=== PATIENT | male | born 1955 | race Caucasian/White ===

== ENCOUNTER 2017-08-10 17:09 | Emergency (ER) | payer MEDICARE, OTHER ==
[~2017-08-10] VITALS: Ht 160 cm; Wt 56.2 kg
[~2017-08-10 17:09] MED LIST: ACYC800 PO; CEPH500 PO; DOXY100 PO; Ensure Plus237 ML PO; Epzicom Tablet1 EACH PO; FAMO20 PO; GENT.3OPO TOP; HYDACE5 PO; HYDR1TAB94 PO; IBUP600 PO; NEOPOLBACA TOP; PROM25 PO; REYATAZ PO; RITO100 PO; Silvadene20 GM TOP
[2017-08-10] MEDS ORDERED: Vibramycin100 MG PO (20:47)
== END 2017-08-10 21:19 | disposition home or self-care (01) ==
LOC: ER 17:09
DX: L02.811 Cutaneous abscess of head [any part, except face] (principal); Z88.2 Allergy status to sulfonamides; Z88.1 Allergy status to other antibiotic agents; Z79.899 Other long term (current) drug therapy; B20 Human immunodeficiency virus [HIV] disease; Z87.891 Personal history of nicotine dependence
CPT/HCPCS: 10060; 70450; 99284

== ENCOUNTER 2017-08-11 19:27 | Emergency (ER) | payer MEDICARE, OTHER ==
[~2017-08-11] VITALS: Ht 165.1 cm; Wt 54.9 kg
[~2017-08-11 19:27] MED LIST changes: +Vibramycin100 MG PO
== END 2017-08-11 20:22 | disposition home or self-care (01) ==
LOC: ER 19:27
DX: Z48.817 Encounter for surgical aftercare following surgery on the skin and subcutaneous tissue (principal); Z88.2 Allergy status to sulfonamides; Z88.1 Allergy status to other antibiotic agents; Z79.899 Other long term (current) drug therapy; Z87.891 Personal history of nicotine dependence
CPT/HCPCS: 99281

== ENCOUNTER 2018-04-28 16:48 | Emergency (ER) | payer MEDICARE, OTHER ==
[~2018-04-28] VITALS: Ht 165.1 cm; Wt 54.4 kg
[2018-04-28] MEDS ORDERED: Prednisone20 MG PO (19:43)
[2018-04-28] MEDS ORDERED: Tears Again15 ML BOTHEYES (19:43)
[2018-04-28] MEDS ORDERED: Zovirax400 MG PO (19:43)
== END 2018-04-28 20:19 | disposition home or self-care (01) ==
LOC: ER 16:48
DX: G51.0 Bell's palsy (principal); Z21 Asymptomatic human immunodeficiency virus [HIV] infection status; Z88.2 Allergy status to sulfonamides; Z88.8 Allergy status to other drugs, medicaments and biological substances; Z79.899 Other long term (current) drug therapy
CPT/HCPCS: 36415; 70450; 93005; 93010; 99284-25

== ENCOUNTER 2019-12-05 17:31 | Observation (INO) | payer MEDICARE ==
[~2019-12-05] VITALS: Ht 165.1 cm; Wt 51.8 kg
[~2019-12-05 17:31] MED LIST changes: +Prednisone20 MG PO; +Tears Again15 ML BOTHEYES; +Zovirax400 MG PO
[2019-12-05 18:39] LABS: BASOPHILS ABSOLUTE AUTO 0.07 K/mm3 (0.00-0.23); BASOPHILS PERCENT AUTO 1 % (0-2); EOSINOPHILS ABSOLUTE AUTO 0.32 K/mm3 (0.00-0.68); EOSINOPHILS PERCENT AUTO 5 % (0-6); Hemoglobin 11.7 g/dL (13.5-17.5); IMMATURE GRAN ABSOLUTE AUTO 0.04 K/mm3 (0.00-0.10); IMMATURE GRAN PERCENT AUTO 1 % (0-1); LYMPHOCYTES ABSOLUTE AUTO 1.32 K/mm3 (0.84-5.20); LYMPHOCYTES PERCENT AUTO 19 % (21-46); MONOCYTES ABSOLUTE AUTO 0.69 K/mm3 (0.16-1.47); MONOCYTES PERCENT AUTO 10 % (4-13); Mean Corpuscular HGB 27.6 pg (26.0-34.0); Mean Corpuscular HGB Conc 30.8 g/dL (31.5-36.5); Mean Corpuscular Volume 90 fL (80-100); Mean Platelet Volume 9.7 fL (9.1-12.4); NEUTROPHILS ABSOLUTE AUTO 4.49 K/mm3 (1.96-9.15); NEUTROPHILS PERCENT AUTO 65 % (41-73); Platelet Count 190 K/mm3 (150-400); RDW Coefficient Variation 13.4 % (11.7-14.2); RDW Standard Deviation 44.1 fL (35.1-46.3); Red Blood Cell Count 4.24 M/mm3 (4.30-5.90); White Blood Cell Count 6.93 K/mm3 (4.00-11.30)
[2019-12-05 19:04] LABS: Alanine Aminotransfer (ALT/SGP 36 U/L (12-78); Albumin, Blood 2.6 g/dL (3.4-5.0); Albumin/Globulin Ratio 0.6 (0.8-1.8); Alk Phos 112 U/L (50-136); Anion Gap 4 mmol/L (6-16); Aspartate Aminotrans (AST/SGOT 23 U/L (12-37); Bilirubin, Total 0.2 mg/dL (0.1-1.0); Blood Urea Nitrogen 38 mg/dL (8-24); Bun/Creatinine Ratio 16.8 (12.0-20.0); CO2, Blood 26 mmol/L (21-32); Calcium, Blood 8.6 mg/dL (8.5-10.1); Chloride, Blood 110 mmol/L (98-108); Creatinine, Blood 2.26 mg/dL (0.60-1.20); Ethanol (Alcohol), Blood, Med <3 mg/dL; Globulin, Blood 4.6 g/dL (2.2-4.0); Glomerular Filtration Rate 31 (60-); Glucose, Blood 110 mg/dL (70-99); Potassium, Blood 4.8 mmol/L (3.5-5.5); Salicylate <1.7 mg/dL (2.8-20.0); Sodium, Blood 140 mmol/L (136-145); Total Protein, Blood 7.2 g/dL (6.4-8.2)
[2019-12-05 19:12] LABS: Acetaminophen, Random <2.0 ug/mL (10.0-30.0)
[2019-12-05 19:42] LABS: Source, Urine Clean Catch
[2019-12-05 19:46] LABS: Bilirubin, Urine Neg (Neg); Blood, Urine Neg (Neg); Glucose Qualitative, Urine Neg (Neg); Ketones, Urine Neg (Neg); Leukocyte Esterase, Urine Neg (Neg); Nitrite, Urine Neg (Neg); Protein, Urine 3+ (Neg); Specific Gravity, Urine 1.015 (1.003-1.022); Urobilinogen, Urine NORM (Normal)
[2019-12-05 19:49] LABS: Appearance, Urine Clear (Clear); Color, Urine Yellow (P-Yellow)
[2019-12-05 19:57] LABS: U Amphetamine Screen Not Detected; U Barbituate Screen Not Detected; U Benzodiazapine Screen Not Detected; U Buprenorphine Screen Not Detected; U Cannabinoids Screen DETECTED; U Cocaine Screen Not Detected; U Methadone Screen Not Detected; U Methamphetamine Screen Not Detected; U Opiates Screen Not Detected; U Oxycodone Screen Not Detected; U Phencyclidine Screen Not Detected; U Propoxyphene Screen Not Detected
[2019-12-05 20:02] LABS: Bacteria Few /hpf; Mucus Light (0-Heavy); Red Blood Cells, Urine 0-2 /hpf (0-2); Squamous Epithelial Cells Rare /hpf (Few); White Blood Cells, Urine 0-2 /hpf (0-5)
--- NOTE | 2019-12-05 20:50 | NUR ---
WERNER ARRIVED TO THE FLOOR VIA WC. ADMITTED FOR ACUTE KIDNEY INJURY, DIZZINESS. AOX3, INDEPENDENT IN THE ROOM. LUNG SOUNDS CLEAR T/O. RESP EVEN AND UNLABORED. HR SINUS, NO CP OR SOB NOTED. SKIN PWD, NO RASHES OR SORES. REPORTS NORMAL BM. FREQUENT URINATION, SMALL AMOUNTS NO BURNING OR PAIN. IV NS INFUSING PER ER ORDER. DENIES ANY PAIN OR DISCOMFORT. ADMISSION DONE, AWAITING FOR MD TO COME SEE THE PATIENT AND PLACE ORDERS.
--- NOTE | 2019-12-05 23:35 | NUR ---
DR. WILLOUGHBY WAS HERE TO SEE THE PATIENT. PLACED ORDERS. EKG VERBAL ORDER GIVEN AND COMPLETED.
--- NOTE | 2019-12-06 05:52 | NUR ---
SHIFT SUMMARY: WERNER WAS ADMITTED FOR ACUTE KIDNEY INJURY. AOX3, INDEPENDENT IN THE ROOM. OCCATIONAL DIZZINESS UPON STANDING, USES CALL LIGHT APPROPRIATLY. DENIED ANY PAIN OR DISCOMFORT. OVERALL ASSESSMENT WAS BENIGN OTHER THEN FREQUENT URINATION, AND LOW AMOUNTS AT A TIME. IV FLUIDS INFUSED AT 75ML/HR. VS WNL, AFEBRILE. TELE SINUS. SLEPT WELL THROUGHOUT THE NIGHT, WITH NO NEEDS TO NOTE. CALL LIGHT REMAINED IN REACH.
[2019-12-06 06:58] LABS: BASOPHILS ABSOLUTE AUTO 0.05 K/mm3 (0.00-0.23); BASOPHILS PERCENT AUTO 1 % (0-2); EOSINOPHILS ABSOLUTE AUTO 0.31 K/mm3 (0.00-0.68); EOSINOPHILS PERCENT AUTO 5 % (0-6); Hematocrit 38.1 % (37.0-53.0); Hemoglobin 11.6 g/dL (13.5-17.5); IMMATURE GRAN ABSOLUTE AUTO 0.03 K/mm3 (0.00-0.10); IMMATURE GRAN PERCENT AUTO 1 % (0-1); LYMPHOCYTES ABSOLUTE AUTO 1.38 K/mm3 (0.84-5.20); LYMPHOCYTES PERCENT AUTO 24 % (21-46); MONOCYTES PERCENT AUTO 10 % (4-13); Mean Corpuscular HGB 27.2 pg (26.0-34.0); Mean Corpuscular HGB Conc 30.4 g/dL (31.5-36.5); Mean Corpuscular Volume 89 fL (80-100); Mean Platelet Volume 9.8 fL (9.1-12.4); NEUTROPHILS ABSOLUTE AUTO 3.46 K/mm3 (1.96-9.15); NEUTROPHILS PERCENT AUTO 59 % (41-73); Platelet Count 218 K/mm3 (150-400); RDW Coefficient Variation 13.3 % (11.7-14.2); RDW Standard Deviation 43.4 fL (35.1-46.3); Red Blood Cell Count 4.26 M/mm3 (4.30-5.90); White Blood Cell Count 5.83 K/mm3 (4.00-11.30)
[2019-12-06 07:19] LABS: Albumin, Blood 2.5 g/dL (3.4-5.0); Albumin/Globulin Ratio 0.7 (0.8-1.8); Bilirubin, Total 0.3 mg/dL (0.1-1.0); Bun/Creatinine Ratio 19.3 (12.0-20.0); Calcium, Blood 8.3 mg/dL (8.5-10.1); Creatinine, Blood 1.92 mg/dL (0.60-1.20); Globulin, Blood 3.5 g/dL (2.2-4.0); Potassium, Blood 5.4 mmol/L (3.5-5.5)
--- NOTE | 2019-12-06 16:33 | NUR ---
PT IS A/OX3, PLEASANT AND COOPERATIVE, THE PT IS UP IND IN HIS ROOM, THE PT DENIES ANY DIZZINESS, SOB, N/V OR PAIN, THE PT WAS ENCOURAGED TO DRINK FLUIDS, PT SLEPT FOR MOST OF THE DAY, PT APPEARS TO BE BREATHING EASILY AT THIS TIME, CALL LIGHT IN REACH, NO OTHER CHANGES NOTICED THIS SHIFT
--- NOTE | 2019-12-07 05:03 | NUR ---
SHIFT SUMMARY HAS BEEN RESTING QUIETLY WITH FEW INTERRUPTIONS THIS SHIFT. IVF OF NS CONTINUES TO INFUSE PER MD ORDERS. CALL LIGHT IN REACH.
[2019-12-07 06:46] LABS: Albumin, Blood 2.3 g/dL (3.4-5.0); Anion Gap 3 mmol/L (6-16); Blood Urea Nitrogen 34 mg/dL (8-24); Bun/Creatinine Ratio 19.8 (12.0-20.0); CO2, Blood 23 mmol/L (21-32); Calcium, Blood 8.2 mg/dL (8.5-10.1); Chloride, Blood 115 mmol/L (98-108); Creatinine, Blood 1.72 mg/dL (0.60-1.20); Glomerular Filtration Rate 42 (60-); Glucose, Blood 83 mg/dL (70-99); Phosphorus, Blood 2.8 mg/dL (2.5-4.9); Potassium, Blood 5.2 mmol/L (3.5-5.5); Sodium, Blood 141 mmol/L (136-145)
[2019-12-07 14:10] LABS: % CD 4 POS. LYMPH. 31.5 % (30.8-58.5); ABSOLUTE CD 4 HELPER 410 /uL (359-1519); BASO (ABSOLUTE) 0.1 x10E3/uL (0.0-0.2); BASOS 1 % (Not Estab.); EOS 5 % (Not Estab.); EOS (ABSOLUTE) 0.3 x10E3/uL (0.0-0.4); HEMATOCRIT 34.8 % (37.5-51.0); HEMOGLOBIN 11.2 g/dL (13.0-17.7); IMMATURE GRANULOCYTES 1 % (Not Estab.); LYMPHS 24 % (Not Estab.); LYMPHS (ABSOLUTE) 1.3 x10E3/uL (0.7-3.1); MCH 27.1 pg (26.6-33.0); MCHC 32.2 g/dL (31.5-35.7); MCV 84 fL (79-97); MONOCYTES 10 % (Not Estab.); MONOCYTES(ABSOLUTE) 0.6 x10E3/uL (0.1-0.9); NEUTROPHILS 59 % (Not Estab.); NEUTROPHILS (ABSOLUTE) 3.4 x10E3/uL (1.4-7.0); PLATELETS 230 x10E3/uL (150-450); RBC 4.13 x10E6/uL (4.14-5.80); RDW 13.4 % (11.6-15.4); WBC 5.6 x10E3/uL (3.4-10.8)
[2019-12-07] MEDS ORDERED: TAMS.4ER PO (14:10)
--- NOTE | 2019-12-07 14:28 | NUR ---
PATIENT DISCHARGE: PATIENT DISCHARGED TO HOME THIS SHIFT. MEDICATION RECONCILIATION COMPLETED; MED LIST CALLED TO [facility] [place]. DISCHARGE EDUCATION COMPLETED WITH PATIENT. PATIENT TRANSPORTED TO EXIT BY [facility] STAFF WITH WHEELCHAIR AT 1425. PATIENT DEPARTED [facility] VIA PRIVATE AUTO.
== END 2019-12-07 14:24 | disposition home or self-care (01) ==
LOC: ER 17:31 → MEDS 17:32
PROVIDERS: Emergency Medicine; Internal Medicine; ADMIT Internal Medicine
DX: R55 Syncope and collapse (principal); E86.0 Dehydration; B20 Human immunodeficiency virus [HIV] disease; T67.01XA Heatstroke and sunstroke, initial encounter; N40.0 Benign prostatic hyperplasia without lower urinary tract symptoms; J32.0 Chronic maxillary sinusitis; J32.1 Chronic frontal sinusitis; N17.9 Acute kidney failure, unspecified; N18.3 Chronic kidney disease, stage 3 (moderate); Z91.14 Patient's other noncompliance with medication regimen; Z88.2 Allergy status to sulfonamides; Z88.8 Allergy status to other drugs, medicaments and biological substances; Z79.899 Other long term (current) drug therapy
CPT/HCPCS: 36415; 70450; 76770; 80053; 80069; 81001; 85025; 86361; 93005; 93010; 96361; 96372; 99285-25; G0378; G0480; J1650; J7030